=== PATIENT | male | born 1940 | race Caucasian/White ===

== ENCOUNTER 2018-01-06 08:22 | Day surgery (SDC) | payer OTHER, BC ==
[2018-01-06 08:29] VITALS: BMI 31.7
[2018-01-06 10:37] VITALS: TEMP 97.8
[2018-01-06 12:53] VITALS: BP 118/75; PULSE 60
--- NOTE | 2018-01-07 12:32 | PATH ---
Surgical Pathology Report Patient Name: GAURAV ALVARADO [facility]. Rec. #: [id number] /Age/Gender: 1940 (Age: 77) / M Account: [id number] Location: [facility]-ENDOSCOPY Taken: 01/06/2018 Received: 01/06/2018 Reported: 01/07/2018 Physicians: Rohan Daley M.D. Specimen(s) Received A: POLYP SIGMOID B: BX PROXIMAL TRANSVERSE COLON POLYP C: BX TRANSVERSE COLON POLYP Clinical History Adenoma surveillance Postoperative diagnosis: Colon polyps (sigmoid and transverse colon); diverticulosis Final Diagnosis A. SIGMOID COLON, POLYP, POLYPECTOMY: TUBULAR ADENOMA. B. PROXIMAL TRANSVERSE COLON, POLYP, POLYPECTOMY: MATURE FIBROADIPOSE TISSUE WITHIN SUBMUCOSA WITH OVERLYING COLONIC EPITHELIUM CONSISTENT WITH SUBMUCOSAL LIPOMA. Separate fragments of polypoid Colonic mucosa without significant pathologic findings. C. TRANSVERSE COLON, POLYP, BIOPSY: TUBULAR ADENOMA. Electronically Signed Lida Raymond M.D. Gross Description A. Received in formalin, labeled "biopsy sigmoid polyp" are 2 garrett, irregular portions of soft tissue measuring 0.3 and 0.8 cm. in greatest dimension. The specimens are submitted in toto in one cassette. B. Received in formalin labeled "biopsy proximal transverse colon polyp (biopsy and snare)," is a 1.1 x 0.6 x 0.5 cm garrett, polypoid portion of soft tissue. Also received within the same container are 3 garrett soft tissue fragments ranging from 0.1-0.8 cm in greatest dimension. The base of the polyp is inked blue and the polyp is bisected. The specimen is entirely submitted in 2 cassettes as follows: 1-bisected polyp; 2-separately received soft tissue fragments. C. Received in formalin, labeled "biopsy transverse colon polyp" are 4 garrett, irregular portions of soft tissue ranging from 0.2-0.5 cm. in greatest dimension. The specimens are submitted in toto in one cassette. 01/06/201801/06/2018
== END 2018-01-06 12:15 | disposition home or self-care (01) ==
LOC: JASU-ENDO 08:22
PROVIDERS: ATTEND Internal Medicine Gastroenterology
PROC: 0DBN8ZX Excision of Sigmoid Colon, Via Natural or Artificial Opening Endoscopic, Diagnostic (ICD-10-PCS; 2018-01-06)
PROC: 0DBL8ZX Excision of Transverse Colon, Via Natural or Artificial Opening Endoscopic, Diagnostic (ICD-10-PCS; 2018-01-06)
PROC: 0DBL8ZX Excision of Transverse Colon, Via Natural or Artificial Opening Endoscopic, Diagnostic (ICD-10-PCS; principal; 2018-01-06 09:00)
DX: Z09 Encounter for follow-up examination after completed treatment for conditions other than malignant neoplasm (principal); Z86.010 Personal history of colon polyps; D12.5 Benign neoplasm of sigmoid colon; D12.3 Benign neoplasm of transverse colon; I10 Essential (primary) hypertension; E78.5 Hyperlipidemia, unspecified; M10.9 Gout, unspecified
CPT/HCPCS: 88305-TC